=== PATIENT | female | born 1935 | race African-American/Black ===

== ENCOUNTER → 2016-08-28 | Outpatient (CLI) | payer MEDICARE, MEDICAID | END | disposition home or self-care (01) | LOC: RADMN 08:11 | PROVIDERS: ATTEND Family Medicine | DX: I77.810 Thoracic aortic ectasia (principal); J98.11 Atelectasis; R91.8 Other nonspecific abnormal finding of lung field; E04.1 Nontoxic single thyroid nodule; I51.7 Cardiomegaly; I25.10 Atherosclerotic heart disease of native coronary artery without angina pectoris; J98.4 Other disorders of lung; I70.0 Atherosclerosis of aorta | CPT/HCPCS: 71250 ==